=== PATIENT | female | born 1965 | race Caucasian/White ===

== ENCOUNTER 2019-08-08 11:29 | Emergency (ER) | payer OTHER ==
[~2019-08-08] VITALS: Ht 177.8 cm; Wt 66.4 kg
[2019-08-08 11:52] VITALS: BP 129/70
[2019-08-08] MEDS ORDERED: KETOROLAC 30 MG/1 ML ONE (12:22)
[2019-08-08] MEDS ORDERED: KETOROLAC 30 MG/1 ML IM ONE (12:30)
--- NOTE | 2019-08-08 13:48 | NUR ---
LUIS RN: Patient/Caregiver given discharge instructions and they have confirmed that they understand the instructions. Patient ambulatory with steady gait.
== END 2019-08-08 13:49 | disposition home or self-care (01) ==
LOC: ED 13:42
DX: R07.89 Other chest pain (principal); W01.0XXA Fall on same level from slipping, tripping and stumbling without subsequent striking against object, initial encounter; Y93.89 Activity, other specified; Y92.89 Other specified places as the place of occurrence of the external cause; Y99.8 Other external cause status
CPT/HCPCS: 71046; 71120; 93005; 96372; 99284; J1885